=== PATIENT | male | born 1985 | race Caucasian/White ===

== ENCOUNTER 2017-01-26 06:07 | Emergency (ER) | payer SELFPAY ==
[~2017-01-26] VITALS: Ht 182.9 cm; Wt 90.9 kg
[2017-01-26 06:32] LABS: GLUCOSE,POINT OF CARE 99 MG/DL (70-110)
[2017-01-26] MEDS ORDERED: MAGNESIUM SULFATE 2 GM, MVI, ADULT NO.1 WITH VIT K 10 ML, THIAMINE HCL 100 MG, FOLIC AC... IV ONE ×5 (06:45)
[2017-01-26] MEDS ORDERED: NALOXONE HCL 1 MG/ML 2 ML SYG ONE (07:18)
[2017-01-26] MEDS ORDERED: NALOXONE HCL 1 MG/ML 2 ML SYG IVP ONE (07:30)
[2017-01-26] MEDS ORDERED: FLUMAZENIL 0.1 MG/ML 5 ML VIAL IVP ONE (07:45)
[2017-01-26] MEDS ORDERED: SODIUM CHLORIDE 0.9% 1,000 ML IV ONE ×2 (11:45→11:47)
[2017-01-26] MEDS ORDERED: CLON0.5T PO (12:01)
[2017-01-26] MEDS ORDERED: ADDE10 PO (12:01)
[2017-01-26] MEDS ORDERED: DIAZEPAM 5 MG/ML 2 ML SYRINGE IVP ONE (12:45)
[2017-01-26] MEDS ORDERED: CLON1 PO (12:47)
[2017-01-26 15:10] VITALS: BP 124/85
== END 2017-01-26 15:10 | disposition home or self-care (01) ==
LOC: EMS 06:09
DX: S20.211A Contusion of right front wall of thorax, initial encounter (principal); F41.9 Anxiety disorder, unspecified; F15.10 Other stimulant abuse, uncomplicated; F17.200 Nicotine dependence, unspecified, uncomplicated; Z76.0 Encounter for issue of repeat prescription; W50.1XXA Accidental kick by another person, initial encounter; Y93.89 Activity, other specified; Y92.89 Other specified places as the place of occurrence of the external cause; Y99.8 Other external cause status
CPT/HCPCS: 36415; 80307; 82962; 96361; 96365; 96366; 96375; 99285; G0480; J1885; J2310; J3411; J3475; J3490 ×3; J7030